=== PATIENT | male | born 1940 | race Caucasian/White ===

== ENCOUNTER 2017-12-12 15:32 | Emergency (ER) | payer OTHER ==
[~2017-12-12] VITALS: Ht 165.1 cm; Wt 81.2 kg
[2017-12-12] MEDS ORDERED: LIPITOR20 MG (15:52)
[2017-12-12] MEDS ORDERED: NORVASC2.5 M1 (15:52)
[2017-12-12] MEDS ORDERED: TOPROL XL25 M1 (15:54)
== END 2017-12-12 18:55 | disposition home or self-care (01) ==
LOC: ER 15:32
DX: J32.8 Other chronic sinusitis (principal); K29.60 Other gastritis without bleeding; J11.1 Influenza due to unidentified influenza virus with other respiratory manifestations